=== PATIENT | female | born 1995 | race African-American/Black ===

== ENCOUNTER 2024-01-18 21:47 | Emergency (ER) | payer OTHER ==
[~2024-01-18] VITALS: Ht 154.9 cm; Wt 56.7 kg
[2024-01-18 23:15] VITALS: TEMP 98.4
[2024-01-18] MEDS ORDERED: dexaMETHasone SOD PHOSPHATE 1 ML ONE (23:32)
[2024-01-18] MEDS: dexaMETHasone SOD PHOSPHATE 4 MG/ML VIAL IM ONE (23:41)
[2024-01-18 23:48] LABS: BASOPHILS % (AUTO) 0.4 % (0.0-2.0); EOSINOPHILS # (AUTO) 0.1 K/uL (0.0-0.7); EOSINOPHILS % (AUTO) 1.7 % (0.0-6.0); HEMATOCRIT 37 % (33-45); HEMOGLOBIN 12.2 g/dL (11.5-14.8); LYMPHOCYTES # (AUTO) 1.4 K/uL (0.8-4.8); LYMPHOCYTES % (AUTO) 24.2 % (20.0-44.0); MEAN CORPUSCULAR HEMOGLOBIN 26 PG (26.0-33.0); MEAN CORPUSCULAR HGB CONC 33 g/dl (31.0-36.0); MEAN CORPUSCULAR VOLUME 80 fL (82-100); MONOCYTES # (AUTO) 0.5 K/uL (0.1-1.30); MONOCYTES % (AUTO) 8.5 % (2.0-12.0); NEUTROPHILS # (AUTO) 3.8 K/uL (1.8-8.9); NEUTROPHILS % (AUTO) 65.2 % (43.0-81.0); PLATELET COUNT (AUTO) 161 K/uL (150-450); RED BLOOD CELL COUNT(AUTO) 4.66 MIL/uL (4.0-5.2); RED CELL DISTRIBUTION WIDTH 15.3 % (11.5-15.0); RETICULOCYTE COUNT 1.5 % (0.6-2.5); WHITE BLOOD COUNT (AUTO) 5.9 K/uL (4.3-11.0)
[2024-01-19 00:12] VITALS: BP 120/70; O2SAT 100
== END 2024-01-19 00:15 | disposition home or self-care (01) ==
LOC: ER 22:09
DX: G89.29 Other chronic pain (principal); M79.604 Pain in right leg; J45.909 Unspecified asthma, uncomplicated; Z87.39 Personal history of other diseases of the musculoskeletal system and connective tissue
CPT/HCPCS: 99283; 96372; 85025; 85045; 36415; J1100